=== PATIENT | female | born 1995 | race Caucasian/White ===

== ENCOUNTER 2016-09-21 15:32 | Inpatient (IN) | payer BC, OTHER ==
[2016-09-21] VITALS (10 sets, daily range): BP systolic 115–138; BP diastolic 63–86
[~2016-09-21 15:32] MED LIST: ALEVE220 MG PO; ESCITALOPRAM OX20 MG; METHADOSE10 MG PO
[2016-09-21] MEDS ORDERED: METHADONE10 MG PO (16:29)
[2016-09-21] MEDS ORDERED: ZOLOFT50 MG PO (16:29)
[2016-09-21] MEDS ORDERED: PRENATAL TABLE1 EAC3 PO (16:30)
[2016-09-21] MEDS ORDERED: FOLIC ACID1 MG PO (16:30)
[2016-09-21 17:27] LABS: EOSINOPHIL (%) 0.9 % (0-5); EOSINOPHIL COUNT 0.1 K/uL (0-0.3); HEMATOCRIT 29.5 % (36.0-46.0); IMMATURE GRANULOCYTE (%) 0.8 % (0.0-0.7); IMMATURE GRANULOCYTE COUNT 0.1 K/uL; INSTRUMENT ABS NEUTROPHIL CT 7.5 K/uL; LYMPHOCYTE COUNT 2.2 K/uL (1.0-2.8); MCH 29.8 PG (29.0-34.0); MCHC 32.9 G/DL (30.0-36.0); MCV 90.8 FL (83-99); MEAN PLAT.VOLUME 9.1 uM^3 (9.5-12.4); MONOCYTE (%) 6.2 % (3-12); MONOCYTE COUNT 0.7 K/uL (0-0.8); NEUTROPHIL (%) 71.1 % (45-76); NEUTROPHIL COUNT 7.5 K/uL (1.8-6.4); PLATELET COUNT 300 K/uL (156-360); RBC DIS.WIDTH-CV 13.8 % (11.8-14.6); RBC DIS.WIDTH-SD 44.7 % (39-53); RED BLOOD COUNT 3.25 M/uL (3.80-5.20); WHITE BLOOD COUNT 10.5 K/uL (4.1-10.2)
[2016-09-22] VITALS (10 sets, daily range): BP systolic 109–140; BP diastolic 57–80
[2016-09-22] MEDS ORDERED: MOTRIN800 MG PO (02:53)
[2016-09-23 08:07] VITALS: BP 125/65
[2016-09-23 15:15] VITALS: BP 117/73
[2016-09-23 23:20] VITALS: BP 126/71
[2016-09-24 07:40] VITALS: BP 120/65
[2016-09-24 15:25] VITALS: BP 127/69
== END 2016-09-24 19:30 | disposition home or self-care (01) | DRG 775 ==
LOC: LDRP-OP 15:32 → 2WEST 15:33 → LDRP-OP 10-26 13:38
PROVIDERS: Nurse Practitioner
PROC: 10E0XZZ Delivery of Products of Conception, External Approach (ICD-10-PCS; principal; 2016-09-21)
DX: O99.824 Streptococcus B carrier state complicating childbirth (principal); O99.344 Other mental disorders complicating childbirth; F32.9 Major depressive disorder, single episode, unspecified; O99.334 Smoking (tobacco) complicating childbirth; Z3A.39 39 weeks gestation of pregnancy; Z37.0 Single live birth; F41.9 Anxiety disorder, unspecified; Z86.59 Personal history of other mental and behavioral disorders
CPT/HCPCS: 85025; G0378; J0595; J2590; J7120